=== PATIENT | male | born 1955 | race Caucasian/White ===

== ENCOUNTER 2018-01-25 02:20 | Emergency (ER) | payer BC ==
[~2018-01-25] VITALS: Ht 175.3 cm; Wt 72.6 kg
[~2018-01-25 02:20] MED LIST: BACTRIM DS TAB1 EACH PO; HUMALOG100 UNIT/1 SUB-Q; HUMULIN R100 UNIT/1 INJ; HYDROCODON-ACE1 EA10 PO; IBUPROFEN600 MG PO; LANTUS100 UNITS/ SUB-Q; LEVAQUIN500 MG PO; LEVEMIR100 UNIT/1 SUB-Q; MAPAP325 MG PO; METFORMIN HCL1000 MG PO; NICOTINE PATCH1 EAC1 TD; PRAVACHOL40 MG PO
[2018-01-25] MEDS ORDERED: LANTUS100 UNITS/ SUB-Q (02:28)
[2018-01-25] MEDS ORDERED: ALEVE220 MG PO (02:40)
[2018-01-25] MEDS ORDERED: NORCO 5-325 TA1 EACH PO (04:25)
--- NOTE | 2018-01-25 17:27 | EKG ---
[facility] [address] [facility] [address] [place] [address] Signed Normal sinus rhythm T wave abnormality, consider lateral ischemia Abnormal ECG When compared with ECG of 14-DEC-2016 11:45, Non-specific change in ST segment in Inferior leads Confirmed by YANG RAMSAY MD ([id number]) on 01/25/2018 5:26:46 PM Electronically Signed By: YANG RAMSAY MD 01/25/18 1727 PATIENT NAME: KRISTINE RENDON Electrocardiogram DATE OF : 59 PHYSICIAN: YANG RAMSAY MD REPORT #: [id number] REPORT IS CONFIDENTIAL AND NOT TO BE RELEASED WITHOUT AUTHORIZATION
== END 2018-01-25 04:47 | disposition home or self-care (01) ==
LOC: ED 02:20
DX: J93.9 Pneumothorax, unspecified (principal); E11.9 Type 2 diabetes mellitus without complications; I10 Essential (primary) hypertension; F17.200 Nicotine dependence, unspecified, uncomplicated; Z79.4 Long term (current) use of insulin; Z79.899 Other long term (current) drug therapy
CPT/HCPCS: 71045; 71260; 74177; 80053; 83690; 83880; 84484; 85025; 85379; 85610; 85730; 93005; 93010; 96374; 96375; 99284; J1170; J2405; Q9967

== ENCOUNTER 2018-03-03 14:29 | Emergency (ER) | payer BC ==
[~2018-03-03] VITALS: Ht 172.7 cm; Wt 76.2 kg
[~2018-03-03 14:29] MED LIST changes: +ALEVE220 MG PO; +ERIVEDGE150 MG PO; +NORCO 5-325 TA1 EACH PO
[2018-03-03] MEDS ORDERED: NOVOLOG100 UNIT/2 (14:45)
[2018-03-03] MEDS ORDERED: CYCLOBENZAPRINE5 MG PO (16:46)
== END 2018-03-03 17:11 | disposition home or self-care (01) ==
LOC: ED 14:29
DX: R25.2 Cramp and spasm (principal); C78.00 Secondary malignant neoplasm of unspecified lung; E11.9 Type 2 diabetes mellitus without complications; J44.9 Chronic obstructive pulmonary disease, unspecified; I10 Essential (primary) hypertension; E78.00 Pure hypercholesterolemia, unspecified; Z87.891 Personal history of nicotine dependence; Z79.4 Long term (current) use of insulin; Z79.899 Other long term (current) drug therapy
CPT/HCPCS: 80053; 85025; 99283

== ENCOUNTER 2018-07-16 08:08 | Emergency (ER) | payer BC ==
[~2018-07-16] VITALS: Ht 172.7 cm; Wt 62.1 kg
--- OUTSIDE RECORDS SUMMARY | ~2018-07-16 | XMS | Encounter Summary ---
Demographics + + + | Address | [address] | | | [place] [address] | + + + | Home Phone | | + + + | Preferred Language | Unknown | + + + | Marital Status | | + + + | Jain Affiliation | Unknown | + + + | Race | Unknown | + + + | Ethnic Group | Unknown | + + + Author + + + | Author | [facility] | | | and Jean Paulana | + + + | Organization | [facility] | | | and Jean Paulana | + + + | Address | Unknown | + + + | Phone | Unavailable | + + + Support + + + + + | Name | Relationship | Address | Phone | + + + + + | Alicia Ya | ECON | [address] | | | | | [place], [place] | | | | | [address] | | + + + + + Care Team Providers + +------+ + | Care Quality Assurance Assessor Name | Role | Phone | + +------+ + | Gilda Cedeno | PCP | | | Jayshree ARELLANO | | | + +------+ + Reason for Visit +--------+ + | Reason | Comments | +--------+ + | Other | | +--------+ + Encounter Details +--------+ + + + + | Date | Type | Department | Care Team | Description | +--------+ + + + + | 05/09/ | Telephone | [facility] | Grupo, | Other | | 2018 | | [facility] | Roman Martinez MD [address] | | | | | [facility] [address] [place] | | | | | [address] [place] | [place] [address] | | | | | [place] [address] | [phone] | | | | | [phone] | | | +--------+ + + + + Social History + +-------+ +--------+------+ | Tobacco Use | Types | Packs/Day | Years | Date | | | | | Used | | + +-------+ +--------+------+ | Never Assessed | | | | | + +-------+ +--------+------+ + + + | Sex Assigned at | Date Recorded | | | | + + + | Not on file | | + + + as of this encounter Plan of Treatment Not on fileas of this encounter Visit Diagnoses Not on filein this encounter"
--- OUTSIDE RECORDS SUMMARY | ~2018-07-16 | XMS | Encounter Summary ---
Demographics + + + | Address | [address] | | | [place] [address] | + + + | Home Phone | | + + + | Preferred Language | Unknown | + + + | Marital Status | | + + + | Scientology Affiliation | Unknown | + + + | Race | Unknown | + + + | Ethnic Group | Unknown | + + + Author + + + | Author | [facility] | + + + | Organization | [facility] | + + + | Address | Unknown | + + + | Phone | Unavailable | + + + Support + + +---------+ + | Name | Relationship | Address | Phone | + + +---------+ + | Alicia Ya | ECON | Unknown | | + + +---------+ + Care Team Providers + +------+ + | Care Car Icer Name | Role | Phone | + +------+ + | Gilda Cedeno PA-C | PCP | | + +------+ + Reason for Visit + + + | Reason | Comments | + + + | Follow-up | PFT, cxr | + + + Consult and Treat (Routine) +--------+--------+ + + + + | Status | Reason | Specialty | Diagnoses / | Referred By | Referred To | | | | | Procedures | Contact | Contact | +--------+--------+ + + + + | Closed | | Pulmonology | Diagnoses | Wilian, | Heladio | | | | | Nery | Gilda | Melissa | | | | | malignant | E, PA-C | MD Myrtle | | | | | neoplasm of | [address] | | | | | unspecified | [address] | | | | | lung (HCC) | [place], | [place], [place] | | | | | | [place] | [address] Phone: | | | | | | [address] | [phone] | | | | | | Phone: | Fax: | | | | | | [phone] | [phone] | | | | | | Fax: | | | | | | | [phone] | | +--------+--------+ + + + + Encounter Details +--------+---------+ + + + | Date | Type | Department | Care Team | Description | +--------+---------+ + + + | 04/17/ | Office | [facility] | Erick Cortez | Centrilobular | | 2018 | Visit | Pulmonology [address] | Jaxon Heredia MD [address] | emphysema (HCC) | | | | [address] | (Primary Dx); | | | | [place] | [place] [address] | Metastatic basal | | | | [address] | [phone] | cell carcinoma; | | | | [phone] | | Personal history of | | | | | | tobacco use, | | | | | | presenting hazards | | | | | | to health; | | | | | | Postprocedural | | | | | | pneumothorax | +--------+---------+ + + + Social History + +-------+ +--------+ + | Tobacco Use | Types | Packs/Day | Years | Date | | | | | Used | | + +-------+ +--------+ + | Former Smoker | | 1 | 48 | Quit: 01/10/2018 | + +-------+ +--------+ + + +---+---+---+ | Smokeless Tobacco: | | | | | Never Used | | | | + +---+---+---+ + + +---------+ + | Alcohol Use | Drinks/We | oz/Week | Comments | | | ek | | | + + +---------+ + | No | | | | + + +---------+ + + + + | Sex Assigned at | Date Recorded | | | | + + + | Not on file | | + + + as of this encounter Last Filed Vital Signs + + + + | Vital Sign | Reading | Time Taken | + + + + | Blood Pressure | 112/69 | 04/17/2018 9:31 AM PDT | + + + + | Pulse | 55 | 04/17/2018 9:31 AM PDT | + + + + | Temperature | 36.5 C (97.7 F) | 04/17/2018 9:31 AM PDT | + + + + | Respiratory Rate | - | - | + + + + | Oxygen Saturation | 98% | 04/17/2018 9:31 AM PDT | + + + + | Inhaled Oxygen | - | - | | Concentration | | | + + + + | Weight | 65.8 kg (145 lb) | 04/17/2018 9:31 AM PDT | + + + + | Height | 175.3 cm (5' 9") | 04/17/2018 9:31 AM PDT | + + + + | Body Mass Index | 21.41 | 04/17/2018 9:31 AM PDT | + + + + in this encounter Progress Notes Erick Cortez MD - 04/17/2018 9:30 AM PDTFormatting of this note may be diffe rent from the original. Patient: Hesham Ya 62 y.o. 1955 Referred from: Gilda Cedeno PA-C [address] [place] [address] Referral reason: COPD HPI: Initial history: 01/18/18 Hesham Ya is a 62 year old gentleman referred to us for multiple lung nodules on CT. Ruslan marc is a current smoker at 1 ppd since age 14. He has a history of basal cell skin Ca which was resected from his left posterior shoulder area which he says was complicated by an infec tion. Last year in December 2016, he had a CT showing a right upper lobe nodule for which a f ollow up CT was recommended. He then had a repeat CT chest on 01/07/18 now showing slightly enlarged RUL lesion with development of numerous bilateral lung nodules with mild bilateral axillary adenopathy and a spiculated mass in the left axilla. Currently he denies dyspnea but does have an intermittent mild cough with whitish sputum. He also notices some interm ittent wheezing as well. 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 Interval history: Hesham is here for follow up for COPD. He had his PFT's which showed mild obstructive lung d isease. He tried using ventolin once but just had cramps of his whole body requiring him to go to the ED. However, he denies any respiratory issues at this time. He denies dyspnea o r wheezing. His main issue is that he has been having nausea and vomiting for 3 days and fabian s been unable to keep anything down the past 3 days. He was also recently treated for an or al thrush. Review of Systems Constitutional: Positive for weight loss. Negative for chills, diaphoresis, fever and malai se/fatigue. HENT: Negative. Negative for congestion and sore throat. Eyes: Negative. Respiratory: Negative for cough, hemoptysis, sputum production, shortness of breath and whe ezing. Cardiovascular: Negative for chest pain, palpitations, orthopnea and leg swelling. Gastrointestinal: Positive for nausea and vomiting. Negative for abdominal pain, constipati on and diarrhea. Genitourinary: Negative for dysuria. Musculoskeletal: Negative for joint pain. Skin: Negative. Negative for rash. Neurological: Negative for dizziness and focal weakness. Endo/Heme/Allergies: Negative for environmental allergies. All other systems reviewed and are negative. Past Medical History Diagnosis Date Arthritis Centrilobular emphysema (HCC) 04/17/2018 Hyperlipidemia Malignant neoplasm (HCC) Skin Metastatic basal cell carcinoma 01/30/2018 Type 2 diabetes mellitus (HCC) Past Surgical History Procedure Laterality Date LUNG BIOPSY 01/24/2018 CT NEEDLE BIOPSY LUNG 01/24/2018 Blayne Henriquez MD [facility] CT ROTATOR CUFF REPAIR Left SKIN CANCER EXCISION Twice Family History Problem Relation Age of Onset Cancer Father Prostate and colon Diabetes type II Father Social History Social History Marital status: Spouse name: N/A Number of children: N/A Years of education: N/A Occupational History Not on file. Social History Main Topics Smoking status: Former Smoker Packs/day: 1.00 Years: 48.00 Quit date: 01/10/2018 Smokeless tobacco: Never Used Alcohol use No Drug use: No Sexual activity: Not on file Other Topics Concern Not on file Social History Narrative No narrative on file Outpatient Encounter Prescriptions as of 04/17/2018 Medication Sig Dispense Refill ERIVEDGE 150 MG capsule Take 150 mg by mouth daily. glucose blood test strip OneTouch Ultra Blue Test Strip insulin aspart (NOVOLOG) 100 UNIT/ML injection Inject into the skin 3 (three) times da natalee before meals. insulin glargine (LANTUS) 100 UNIT/ML injection Inject 30 Units into the skin nightly. Insulin Syringe-Needle U-100 (INSULIN SYRINGE 1CC/31GX5/16") 31G X 5/16" 1 ML MISC LEVEMIR 100 UNIT/ML injection metFORMIN (GLUCOPHAGE) 1000 MG tablet Take 1,000 mg by mouth 2 (two) times daily. pravastatin (PRAVACHOL) 40 MG tablet Take 40 mg by mouth nightly. No facility-administered encounter medications on file as of 04/17/2018. Vitals: 04/17/18 0931 BP: 112/69 BP Location: Left upper arm Patient Position: Sitting Pulse: 55 Temp: 97.7 F (36.5 C) TempSrc: Oral SpO2: 98% Weight: 65.8 kg (145 lb) Height: 1.753 m (5' 9") Physical Exam Constitutional: He appears well-developed. No distress. HENT: Head: Normocephalic. Mouth/Throat: Oropharynx is clear and moist. No oropharyngeal exudate. Eyes: Conjunctivae are normal. No scleral icterus. Neck: No tracheal deviation present. No visible thrush on exam Cardiovascular: Normal rate, regular rhythm and normal heart sounds. No murmur heard. Pulmonary/Chest: Effort normal and breath sounds normal. No accessory muscle usage or strid or. No tachypnea and no bradypnea. No respiratory distress. He has no decreased breath sound s. He has no wheezes. He has no rhonchi. He has no rales. Abdominal: Soft. He exhibits no distension and no mass. There is no tenderness. There is no guarding. Musculoskeletal: He exhibits no edema. Lymphadenopathy: He has no cervical adenopathy. Neurological: He is alert. Skin: Skin is warm. He is not diaphoretic. No cyanosis. Nails show no clubbing. Vitals reviewed. PET 01/21/18 1. An irregular spiculated soft tissue mass in left axilla with hypermetabolic activity c oncerning for malignancy, probably metastatic. 2. Multiple enlarged hypermetabolic left axillary and left supraclavicular lymph nodes an d multiple hypermetabolic bilateral pulmonary lymph nodes concerning for metastasis. 3. An irregular shaped nodular opacity in right upper lobe with area of cavitation and hy permetabolic activity, could represent metastasis or pneumonia. 4. A small focal lesion in right parotid with hypermetabolic activity concerning for neop lasm. Differential considerations include malignant or benign primary parotid neoplasm or me tastasis. Recommend ENT consultation. 5. Mildly hypermetabolic bilateral internal jugular chain level 2 lymph nodes, nonspecifi c, probably reactive. Metastatic lymphadenopathy cannot been entirely excluded. 6. Subtle skin thickening overlying right scapula measuring approximately 5 to 6 mm with mild hypermetabolic activity, max SUV 2.3. A small inflammatory or neoplastic skin lesion ca nnot be excluded. This may be amenable to direct clinical inspection. 7. Additional incidental findings as detailed above. Lung biopsy: 01/24/18 SPECIMEN(S): A Rt. LOWER LUNG NODULE SPECIMEN SOURCE: A. Rt. LOWER LUNG NODULE CLINICAL HISTORY: 01/24/2018 at 1300 H. Mult. New pulm nodules. Hx of basal cell Ca. FINAL PATHOLOGIC DIAGNOSIS: Lung, right lower lobe nodule, core biopsies: - Metastatic basal cell carcinoma COMMENT: The tumor fragments are infiltrated by carcinoma comprised of cells morphologically compati ble with basal cell carcinoma. The diagnosis is confirmed by the following immunohistochem ical staining pattern: - Positive for YASIR-3, CK 5/6, p40 and p63 - Negative for JASMYNE, low molecular weight cytokeratin (CK8/18), Napsin-A, [place]-8, T TF-1, CK7, CDx-2, synaptophysin and chromogranin PFT [place] 02/14/18 FEV1/FVC ratio 0.61 FEV-1 2.62L/77% FVC 4.3L/99% (+) 19 % improvement in FEV1 and 14% improvement in FVC post bronchodilators TLC 7.33L/111% RV/TLC 0.46 DLCO 69% DL/VA 78% CXR: 01/30/18 1. Interval resolution of previously visualized small right pneumothorax. 2. Multiple bilateral pulmonary nodules, better evaluated on CT dated 01/07/2018. 3. COPD with pulmonary emphysema. 4. Small right pleural effusion, new as compared to radiographs dated 04/26/2017. Assessment and Plan: A> 62M smoker with multiple lung nodules, multiple enlarged lymph nodes, skin lesions secon tahir to metastatic basal cell carcinoma. P> 1. COPD - the patient has emphysema in a former smoker with mild obstructive lung disease on most r ecent PFT - he tried ventolin but results in cramps. So he has not used this. However, he feels apntera t he does not have much respiratory symptoms at this time and does not need to use any inhal ers which is reasonable in someone with mild obstructive lung disease. If he does develop d yspnea or wheezing later on, we can start him on long acting inhalers such as spiriva or ano ro ellipta. 2. Nausea/vomiting - the patient says he has had intractable nausea and vomiting the past few days and most no tably the past 3 days has not been able to keep anything down. His abdominal exam is unrema rkable and nontender. - he will try to contact his PCP and oncologist but I suggested that the better option may be to go to the ED so he may be evaluated and may need IV hydration. He says he will consid er going to the ED in [place]. 3. Metastatic basal cell ca - follows with Dr. Lombardo. - PET scan today 4. Pneumothorax post biopsy - resolved on last CXR on 01/30. Return in about 6 months (around 10/18/2018). in this encounter Plan of Treatment +--------+---------+ + + + | Date | Type | Specialty | Care Team | Description | +--------+---------+ + + + | 10/18/ | Office | Pulmonology | Erick Cortez | | | 2019 | Visit | | Jaxon Heredia MD [address] | | | | | | [address] | | | | | | [place] [address] | | | | | | [phone] | | | | | | | | +--------+---------+ + + + as of this encounter Visit Diagnoses + + | Diagnosis | + + | Centrilobular emphysema (HCC) - Primary | + + | Other emphysema | + + | Metastatic basal cell carcinoma | + + | Personal history of tobacco use, presenting hazards to health | + + | Postprocedural pneumothorax | + + | Iatrogenic pneumothorax | + +
--- OUTSIDE RECORDS SUMMARY | ~2018-07-16 | XMS | Encounter Summary ---
Demographics + + + | Address | [address] | | | [place] [address] | + + + | Home Phone | | + + + | Preferred Language | Unknown | + + + | Marital Status | | + + + | Orthodox Affiliation | Unknown | + + + | Race | Unknown | + + + | Ethnic Group | Unknown | + + + Author + + + | Author | [facility] | | | and Jean Paulana | + + + | Organization | [facility] | | | [...] [address] | | | | | [place], [place] | | | | | [address] | | + + + + + Care Team Providers + +------+ + | Care Doughnut Fryer Name | Role | Phone | + [...] [place] | | | | | [address] [place] | [place] [address] | | | | | [place] [address] | [phone] | | | | | [phone] | | | +--------+ + + + [...]
--- OUTSIDE RECORDS SUMMARY | ~2018-07-16 | XMS | Clinical Summary ---
Demographics + + + | Address | [address] | | | [place] [address] | + + + | Home Phone | | + + + | Preferred Language | Unknown | + + + | Marital Status | | + + + | Mormonism Affiliation | Unknown | + + + | Race | Unknown | + + + | Ethnic Group | Unknown | + + + Author + + + | Author | [facility] | | | and Jean Paulana | + + + | Organization | [facility] | | | and Jean Paulana | + + + | Address | Unknown | + + + | Phone | Unavailable | + + + Support + + + + + | Name | Relationship | Address | Phone | + + + + + | Alicia Rendon | ECON | [address] | | | | | [place], [place] | | | | | [address] | | + + + + + Care Team Providers + +------+ + | Care Wharf Attendant Name | Role | Phone | + +------+ + | Gilda Cedeno | PP | | | Jayshree ARELLANO | | | + +------+ + Allergies Not on File Current Medications Not on file Active Problems Not on file Encounters +--------+ + + + + | Date | Type | Specialty | Care Team | Description | +--------+ + + + + | 06/05/ | Ancillary | | Provider, | | | 2017 | Orders | | MD Ronit | | +--------+ + + + + | 06/03/ | Ancillary | | Provider, | | | 2017 | Orders | | MD Ronit | | +--------+ + + + + | 06/03/ | Ancillary | | Provider, | | | 2017 | Orders | | MD Ronit | | +--------+ + + + + | 05/09/ | Telephone | | Grupo, | Other | | 2018 | | | Roman Martinez MD | | +--------+ + + + + | 04/17/ | Imaging | | Provider, | | | 2017 | Exam | | MD Ronit | | +--------+ + + + + from Last 3 Months Social History + +-------+ +--------+------+ | Tobacco [...] on file | | + + + Plan of Treatment + + + + + | Health Maintenance | Due Date | Last Done | Comments | + + + + + | Hepatitis C | | | | | Screening | 8 | | | + + + + + | Vaccine: | | | | | Dtap/Tdap/Td (1 - | 7 | | | | Tdap) | | | | + + + + + | Colorectal Cancer | | | | | Screening | 8 | | | | (Colonoscopy) | | | | + + + + + | Vaccine: Zoster (1 | | | | | of 2) | 8 | | | + + + + + | Vaccine: Influenza | | | | | (#1) | 8 | | | + + + + + Procedures + +--------+ + + + | Procedure Name | Priori | Date/Time | Associated Diagnosis | Comments | | | ty | | | | + +--------+ + + + | PET CT SKULL BASE TO | Routin | 04/17/2018 | | Results for this | | MID THIGH | e | 1240 PDT | | procedure are in the | | | | | | results section. | + +--------+ + + + from Last [address] Skull Base To Mid Thigh (04/17/2018 1240) + + + | Narrative | Performed At | + + + | External films for comparison only | [facility] | | | | | No results will be in the chart. | | + + + + +---------+ + + | Performing | Address | City/State/Zipcode | Phone Number | | Organization | | | | + +---------+ + + | [facility] | | | | + +---------+ + + from Last 3 Months Insurance +---------+--------+ +------+ +---------+ | Payer | Benefi | Subscriber | Type | Phone | Address | | | t Plan | ID | | | | | | / | | | | | | | Group | | | | | +---------+--------+ +------+ +---------+ | [employer] | [employer] | [id number] | PPO | [phone] | | | | [place] [employer] | | | [id number] | | | | [place] | | | | | | | PPO | | | | | +---------+--------+ +------+ +---------+ + +--------+ +--------+ + + | Guarantor Name | Accoun | Relation to | Date | Phone | Billing Address | | | t Type | Patient | of | | | | | | | | | | + +--------+ +--------+ + + | KRISTINE RENDON | Person | Self [birth year] Home: | [address] | | | al/Fam | | 1955 | [phone] | [place] [address] | | | natalee | | | [phone] | | + +--------+ +--------+ + +"
--- OUTSIDE RECORDS SUMMARY | ~2018-07-16 | XMS | Clinical Summary ---
Demographics + + + | Address | [address] | | | [place] [address] | + + + | Home Phone | | + + + | Preferred Language | Unknown | + + + | Marital Status | | + + + | Roman Catholic Affiliation | Unknown | + + + | Race | Unknown | + + + | Ethnic Group | Unknown | + + + Author + + + | Author | [facility] [employer] | + + + | Organization | [facility] [employer] [facility] | + + + | Address | Unknown | + + + | Phone | Unavailable | + + + Support + + +---------+ + | Name | Relationship | Address | Phone | + + +---------+ + | Alicia Rendon | ECON | Unknown | | + + +---------+ + Care Team Providers + +------+ + | Care Cinder Block Mason Name | Role | Phone | + +------+ + | Gilda Cedeno PA-C | PP | | + +------+ + Allergies No Known Allergies Current Medications + + +-------+---------+------+------+-------+ | Prescription | Sig. | Disp. | Refills | Star | End | Statu | | | | | | t | Date | s | | | | | | Date | | | + + +-------+---------+------+------+-------+ | metFORMIN | Take 1,000 mg by | | | | | Activ | | (GLUCOPHAGE) 1000 MG | mouth 2 (two) times | | | | | e | | tablet | daily. | | | | | | + + +-------+---------+------+------+-------+ | pravastatin | Take 40 mg by mouth | | | | | Activ | | (PRAVACHOL) 40 MG | nightly. | | | | | e | | tablet | | | | | | | + + +-------+---------+------+------+-------+ | insulin glargine | Inject 30 Units into | | | | | Activ | | (LANTUS) 100 UNIT/ML | the skin nightly. | | | | | e | | injection | | | | | | | + + +-------+---------+------+------+-------+ | insulin aspart | Inject into the | | | | | Activ | | (NOVOLOG) 100 | skin 3 (three) times | | | | | e | | UNIT/ML injection | daily before meals. | | | | | | + + +-------+---------+------+------+-------+ | glucose blood test | OneTouch Ultra Blue | | | | | Activ | | strip | Test Strip | | | | | e | + + +-------+---------+------+------+-------+ | LEVEMIR 100 | | | | 02/0 | | Activ | | UNIT/ML injection | | | | 9/20 | | e | | | | | | 18 | | | + + +-------+---------+------+------+-------+ | Insulin | | | | 03/1 | | Activ | | Syringe-Needle U-100 | | | | 2/20 | | e | | (INSULIN SYRINGE | | | | 18 | | | | [id number]/[id number]/16") 31G X | | | | | | | | 5/16" 1 ML MISC | | | | | | | + + +-------+---------+------+------+-------+ | ERIVEDGE 150 MG | Take 150 mg by mouth | | | 08/0 | | Activ | | capsule | daily. | | | 6/20 | | e | | | | | | 18 | | | + + +-------+---------+------+------+-------+ Active Problems + + + | Problem | Noted Date | + + + | Centrilobular emphysema (HCC) | 04/17/2018 | + + + | Postprocedural pneumothorax | 01/30/2018 | + + + | Metastatic basal cell carcinoma | 01/30/2018 | + + + | Personal history of tobacco use, presenting hazards to health | 01/30/2018 | + + + Encounters +--------+ + + + + | Date | Type | Specialty | Care Team | Description | +--------+ + + + + | 04/17/ | Hospital | | [facility], | Basal cell carcinoma | | 2017 | Encounter | | MD Roman | of skin of other | | | | | | parts of face; | | | | | | Malignant neoplasm | | | | | | metastatic to lung, | | | | | | unspecified | | | | | | laterality (HCC) | +--------+ + + + + | 04/17/ | Office | | E[facility] Cortez | Centrilobular | | 2017 | Visit | | Jaxon Heredia MD | emphysema (HCC) | | | | | | (Primary Dx); | | | | | | Metastatic basal | | | | | | cell carcinoma; | | | | | | Personal history of | | | | | | tobacco use, | | | | | | presenting hazards | | | | | | to health; | | | | | | Postprocedural | | | | | | pneumothorax | +--------+ + + + + | 04/17/ | Documentati | | [facility], | | | 2017 | on Only | | MD Roman | | +--------+ + + + + | 04/17/ | Documentati | | [facility], | | | 2017 | on Only | | MD Roman | | +--------+ + + + + from Last 3 Months Family History + + +------+ + | Medical History | Relation | Name | Comments | + + +------+ + | Cancer | Father | | Prostate and colon | + + +------+ + | Diabetes type II | Father | | | + + +------+ + + +------+ + + | Relation | Name | Status | Comments | + +------+ + + | Father | | | | + +------+ + + | Mother | | | | + +------+ + + Social History + +-------+ +--------+ [...] on file | | + + + Last Filed Vital Signs + + + [...] + + + | Respiratory Rate | 16 | 01/24/2018 1:10 PM PDT | + + + + | Oxygen [...] AM PDT | + + + + Plan of Treatment +--------+---------+ + + + | Date | Type | Specialty | Care Team | Description | +--------+---------+ + + + | 10/18/ | Office | | E[facility] Cortez | | | 2019 | Visit | | Jaxon Heredia MD [address] | | | | | | [address] | | | | | | [place] [address] | | | | | | [phone] | | | | | | | | +--------+---------+ + + + Procedures + +--------+ + + + | Procedure Name | Priori | Date/Time | Associated Diagnosis | Comments | | | ty | | | | + +--------+ + + + | PET CT TUMOR | Routin | 04/17/2018 | Basal cell | Results for this | | LOCALIZATION | e | 1:52 PM | carcinoma of skin of | procedure are in the | | SUBSEQUENT TORSO | | PDT | other parts of face | results section. | | | | | Malignant neoplasm | | | | | | metastatic to lung, | | | | | | unspecified | | | | | | laterality (HCC) | | + +--------+ + + + | POCT GLUCOSE | Routin | 04/17/2018 | | Results for this | | | e | 11:34 AM | | procedure are in the | | | | PDT | | results section. | + +--------+ + + + from Last 3 Months Results PET Subsequent Torso FDG (04/17/2018 1:52 PM) + + + | Impressions | Performed At | + + + | 1. Decrease in size and uptake of the pulmonary metastatic | [facility] | | disease, with near resolution of pulmonary uptake. 2. Decrease in | RADIOLOGY | | size with moderate decrease in activity of the left axillary | | | metastasis. 3. Mild decrease in size and uptake of the | | | infiltrative right upper lobe malignant mass. 4. Faint probably | | | reactive uptake in the bilateral neck lymph nodes. 5. Near | | | resolution of the lymph nodes and associated uptake in the left | | | supraclavicular and deep left axillary region. 6. 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 7. Other benign findings as described. | | | | | + + + + + + | Narrative | Performed At | + + + | KRISTINE RENDON 1955 04/17/2018 1:[address] TUMOR | [facility] | | LOCALIZATION SUBSEQUENT TORSO HISTORY: Basal cell carcinoma the | RADIOLOGY | | face, with metastases to the lung COMPARISON: 01/21/18 PET/CT. CT | | | chest 01/07/18. CT-guided lung biopsy of the left lower lobe | | | 01/24/18. Chest x-ray most recent 01/30/18. TECHNIQUE: Serum | | | blood sugar 94 mg/dL. Fused PET/CT scans were obtained from the | | | skull base through the thighs at 75 minutes post injection of 13.7 | | | millicuries F18 fluorodeoxyglucose. CT images are for localization | | | only, and not for diagnostic purposes. FINDINGS: The original | | | infiltrative lung lesion in the anterolateral right upper lobe has | | | minimally decreased in size, with mild decrease in uptake. There has | | | been decrease in size of the numerous pulmonary metastases, with | | | decrease in uptake. No new pulmonary lesions. Left axillary metastatic | | | disease has decreased in size and uptake. Target lesions: | | | 1. Right lower lobe pulmonary nodule sequence 4 image 133 measuring | | | 9 x 7 mm, SUV 1.8, compared with 12 x 12 mm, SUV 7.7 previously. | | | 2. Right upper lobe pulmonary nodule series 4 image 103 measures 7 | | | x 5 mm, SUV 1.1, compared with 11 x 7 mm, SUV 4.4 previously. | | | 3. Infiltrative nodule in the anterior right upper lobe sequence 4 | | | image 112 measuring 17 x 17 mm, SUV 4.0, compared with 18 x 12 mm | | | previously, SUV 4.0 previously. 4. Left lower lobe pulmonary | | | nodule sequence 4 image 134 measuring 5 x 4 mm, SUV 1.1. | | | 5. Spiculated left axillary mass sequence 4 image 98 measuring 2.0 | | | x 0.9 cm, SUV 6.5, compared with 2.0 x 2.3 cm, SUV 12.9 previously. | | | 6. The index left axillary lymph node sequence 4 image 84 measures | | | 0.8 x 0.6 cm, SUV 1.5. 7. The index left supraclavicular lymph | | | node is no longer seen, without uptake. There is a 5 x 6 mm nodule | | | within the posterior margin of the right parotid salivary gland | | | sequence 4 image 38 mm, SUV 11.2, stable in size, previously SUV 18.9. | | | Faint uptake in stable sized bilateral level 2 lymph nodes | | | measuring 10 x 5 mm sequence 4 image 52 on the right, and 12 x 4 mm on | | | the left image 54, SUV 2.8 and 2.3 respectively, previous SUV 3.9, | | | 4.4 respectively. Subtle uptake of the skin along the posterior | | | right axilla has uptake, likely reactive. Calcified granulomata in the | | | lungs. Partially calcified subcarinal lymph node, without uptake. | | | Intense distal small and diffuse large bowel uptake, more prominent | | | today, but without corresponding CT changes, probably reactive. 2 | | | stones measuring 1-2 mm in the upper and midpole of the left kidney | | | again noted. Fusiform dilatation of the distal abdominal aorta | | | measures up to 2.6 cm AP dimension with moderate atherosclerotic | | | changes, but no aneurysm. | | + + + + + | Procedure Note | + + | Pedro, Rad Results In - 04/17/2018 2:34 PM PDT KRISTINE Nguyen H[facility]SEINE3/5[facility]12745 1:52 | | PMPET CT TUMOR LOCALIZATION SUBSEQUENT TORSOHISTORY: Basal cell carcinoma the face, | | with metastases to the lungCOMPARISON: 01/21/18 PET/CT. CT chest 01/07/18. CT-guided | | lung biopsy of the left lower lobe 01/24/18. Chest x-ray most recent | | 01/30/18.TECHNIQUE:Serum blood sugar 94 mg/dL. Fused PET/CT scans were obtained from | | the skull base through the thighs at 75 minutes post injection of 13.7 millicuries F18 | | fluorodeoxyglucose. CT images are for localization only, and not for diagnostic | | purposes.FINDINGS:The original infiltrative lung lesion in the anterolateral right upper | | lobe has minimally decreased in size, with mild decrease in uptake. There has been | | decrease in size of the numerous pulmonary metastases, with decrease in uptake. No new | | pulmonary lesions. Left axillary metastatic disease has decreased in size and | | uptake.Target lesions:1. Right lower lobe pulmonary nodule sequence 4 image 133 | | measuring 9 x 7 mm, SUV 1.8, compared with 12 x 12 mm, SUV 7.7 previously.2. Right | | upper lobe pulmonary nodule series 4 image 103 measures 7 x 5 mm, SUV 1.1, compared with | | 11 x 7 mm, SUV 4.4 previously.3. Infiltrative nodule in the anterior right upper lobe | | sequence 4 image 112 measuring 17 x 17 mm, SUV 4.0, compared with 18 x 12 mm previously, | | SUV 4.0 previously.4. Left lower lobe pulmonary nodule sequence 4 image 134 measuring | | 5 x 4 mm, SUV 1.1.5. Spiculated left axillary mass sequence 4 image 98 measuring 2.0 x | | 0.9 cm, SUV 6.5, compared with 2.0 x 2.3 cm, SUV 12.9 previously.6. The index left | | axillary lymph node sequence 4 image 84 measures 0.8 x 0.6 cm, SUV 1.5.7. The index | | left supraclavicular lymph node is no longer seen, without uptake.There is a 5 x 6 mm | | nodule within the posterior margin of the right parotid salivary gland sequence 4 image | | 38 mm, SUV 11.2, stable in size, previously SUV 18.9.Faint uptake in stable sized | | bilateral level 2 lymph nodes measuring 10 x 5 mm sequence 4 image 52 on the right, and | | 12 x 4 mm on the left image 54, SUV 2.8 and 2.3 respectively, previous SUV 3.9, 4.4 | | respectively.Subtle uptake of the skin along the posterior right axilla has uptake, | | likely reactive. Calcified granulomata in the lungs. Partially calcified subcarinal | | lymph node, without uptake.Intense distal small and diffuse large bowel uptake, more | | prominent today, but without corresponding CT changes, probably reactive.2 stones | | measuring 1-2 mm in the upper and midpole of the left kidney again noted. Fusiform | | dilatation of the distal abdominal aorta measures up to 2.6 cm AP dimension with | | moderate atherosclerotic changes, but no aneurysm.IMPRESSION:1. Decrease in size and | | uptake of the pulmonary metastatic disease, with near resolution of pulmonary uptake.2. | | Decrease in size with moderate decrease in activity of the left axillary metastasis.3. | | Mild decrease in size and uptake of the infiltrative right upper lobe malignant mass.4. | | Faint probably reactive uptake in the bilateral neck lymph nodes.5. Near resolution | | of the lymph nodes and associated uptake in the left supraclavicular and deep left | | axillary region.6. 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 Other benign findings as | | described. | |5. Near resolution of the lymph nodes and associated uptake in the left supraclavicular an d deep left axillary region. | |6. 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 | |7. Other benign findings as described. | | | | | + + + + + + + | Performing | Address | City/State/Zipcode | Phone Number | | Organization | | | | + + + + + | [facility] | [address] | [place] [address] | | + + + + + POCT glucose (04/17/2018 11:34 AM) + + + + + | Component | Value | Ref Range | Performed At | + + + + + | GLUCOSE,POC SCREEN | 94Comment: Testing | 65 - 99 mg/dL | [facility] | | | performed at [facility];[id number] | [address];[place] | | | | | [address] | | | + + + + + + + + + + | Performing | Address | City/State/Zipcode | Phone Number | | Organization | | | | + + + + + | [facility] | [address] | [place] [address] | | + + + + + from Last 3 Months Insurance +---------+--------+ +------+-------+ + | Payer | Benefi | Subscriber | Type | Phone | Address | | | t Plan | ID | | | | | | / | | | | | | | Group | | | | | +---------+--------+ +------+-------+ + | PREMERA | PREMER | [id number] | | | [address] [address] | | | A BLUE | | | | [place] | | | [place] | | | | [address] | | | FED | | | | | | | PPO | | | | | +---------+--------+ +------+-------+ + + +--------+ +--------+ + + | Guarantor Name | Accoun | Relation to | Date | Phone | Billing Address | | | t Type | Patient | of | | | | | | | | | | + +--------+ +--------+ + + | KRISTINE RENDON | Person | Self [birth year] Home: | [address] | | | al/Fam | | 1955 | [phone] | [place] | | | [place]alee | | | [phone] | [phone] | + +--------+ +--------+ + +
--- OUTSIDE RECORDS SUMMARY | ~2018-07-16 | XMS | Encounter Summary ---
Demographics + + + | Address | [address] | | | [place] [address] | + + + | Home Phone | | + + + | Preferred Language | Unknown | + + + | Marital Status | | + + + | Amish Affiliation | Unknown | + + + | Race | Unknown | + + + | Ethnic Group | Unknown | + + + Author + + + | Author | [facility] | | | and Jean Paulana | + + + | Organization | [facility] | | | and Jean Paulana | + + + | Address | Unknown | + + + | Phone | Unavailable | + + + Support + + + + + | Name | Relationship | Address | Phone | + + + + + | Alicia Ya | ECON | [address] | | | | | [place], [place] | | | | | [address] | | + + + + + Care Team Providers + +------+ + | Care Director Employee Safety And Health Name | Role | Phone | + +------+ + | Gilda Cedeno | PCP | | | Jayshree ARELLANO | | | + +------+ + Encounter Details +--------+ + + + + | Date | Type | Department | Care Team | Description | +--------+ + + + + | 06/03/ | Ancillary | [facility]AT[facility] RODRIGUE[facility] | Provider, | | | 2018 | Orders | [facility] | MD [address] | | | | | IMAGING | [address] | | | | | [phone] | [place] [address] | | +--------+ + + + + [...] Treatment Not on fileas of this encounter Results PET CT Skull Base To Mid [...] | | | + +---------+ + + in this encounter Visit Diagnoses Not on filein this encounter"
--- OUTSIDE RECORDS SUMMARY | ~2018-07-16 | XMS | Encounter Summary ---
Demographics + + + | Address | [address] | | | [place] [address] | + + + | Home Phone | | + + + | Preferred Language | Unknown | + + + | Marital Status | | + + + | Spiritism Affiliation | Unknown | + + + | Race | Unknown | + + + | Ethnic Group | Unknown | + + + Author + + + | Author | [facility] | | | and Jean Paulana | + + + | Organization | [facility] | | | and Jean Paulana | + + + | Address | Unknown | + + + | Phone | Unavailable | + + + Support + + + + + | Name | Relationship | Address | Phone | + + + + + | Alicia Ya | ECON | [address] | | | | | [place], [place] | | | | | [address] | | + + + + + Care Team Providers + +------+ + | Care Weld Inspector Name | Role | Phone | + [...] [address] | | | | | [phone] | [place] [address] | | +--------+ + + + + [...] PET CT Skull Base To Mid Thigh (01/21/2018 1423) + + + | Narrative | Performed [...]
--- OUTSIDE RECORDS SUMMARY | ~2018-07-16 | XMS | Encounter Summary ---
Demographics + + + | Address | [address] | | | [place] [address] | + + + | Home Phone | | + + + | Preferred Language | Unknown | + + + | Marital Status | | + + + | Sabianist Affiliation | Unknown | + + + | Race | Unknown | + + + | Ethnic Group | Unknown | + + + Author + + + | Author | [facility] | | | and Jean Paulana | + + + | Organization | [facility] | | | [...] [address] | | | | | [place], [place] | | | | | [address] | | + + + + + Care Team Providers + +------+ + | Care Ballistics Teacher Name | Role | Phone | + +------+ + | Gilda Cedeno | PCP | | | Jayshree ARELLANO | | | + +------+ + Encounter Details +--------+ + + + + | Date | Type | Department | Care Team | Description | +--------+ + + + + | 06/05/ | Ancillary | [facility] | Provider, | | | 2018 | Orders | [facility] | MD [address] | | | | | IMAGING | [address] | | | | | [phone] | [place] [address] | | +--------+ + + + + [...] Not on fileas of this encounter Results CT Chest Abdomen Pelvis w Contrast (01/25/2018 1600) + + + | Narrative | Performed [...] | | | + +---------+ + + XR Chest 1 Vw (01/25/20181399) + + + | Narrative | Performed [...] | | | + +---------+ + + XR Chest 1 Vw (12/15/20171399) + + + | Narrative | Performed [...] | | | + +---------+ + + CT Chest Abdomen Pelvis w Contrast (12/15/2016 1300) + + + | Narrative | Performed [...] | | | + +---------+ + + XR Chest 2 Vws (12/14/2016 1500) + + + | Narrative | Performed [...]
--- OUTSIDE RECORDS SUMMARY | ~2018-07-16 | XMS | Encounter Summary ---
Demographics + + + | Address | [address] | | | [place] [address] | + + + | Home Phone | | + + + | Preferred Language | Unknown | + + + | Marital Status | | + + + | Mormon Affiliation | Unknown | + + + | Race | Unknown | + + + | Ethnic Group | Unknown | + + + Author + + + | Author | [facility] [employer] | + + + | Organization | [facility] [employer] [facility] | + + + | Address | Unknown | + + + | Phone | Unavailable | + + + Support + + +---------+ + | Name | Relationship | Address | Phone | + + +---------+ + | Alicia Ya | ECON | Unknown | | + + +---------+ + Care Team Providers + +------+ + | Care Employment Specialist Name | Role | Phone | + +------+ + | Gilda Cedeno PA-C | PCP | | + +------+ + Encounter Details +--------+ + + + + | Date | Type | Department | Care Team | Description | +--------+ + + + + | 04/17/ | Documentati | [facility] | Grupo, | | | 2018 | on Only [facility] | MD [address] | | | | | [id number] | [address] | | | | | [place] | [place] [address] | | | | | [place] [address] | [phone] | | | | | [phone] | | | +--------+ + + + [...] as of this encounter Plan of Treatment +--------+---------+ + + + | Date | Type | Specialty | Care Team | Description | +--------+---------+ + + + | 10/18/ | Office | Pulmonology | Erick Cortez | | | 2019 | Visit | | Jaxon Heredia MD [address] | | | | | | [address] | | | | | | [place] [address] | | | | | | [phone] | | | | | | | | +--------+---------+ + + + as of this encounter Visit Diagnoses Not on filein this encounter"
--- OUTSIDE RECORDS SUMMARY | ~2018-07-16 | XMS | Encounter Summary ---
Demographics + + + | Address | [address] | | | [place] [address] | + + + | Home Phone | | + + + | Preferred Language | Unknown | + + + | Marital Status | | + + + | Hinduism Affiliation | Unknown | + + + | Race | Unknown | + + + | Ethnic Group | Unknown | + + + Author + + + | Author | [facility] | + + + | Organization | [facility] [employer] [facility] | + + + | Address | Unknown | + + + | Phone | Unavailable | + + + Support + + +---------+ + | Name | Relationship | Address | Phone | + + +---------+ + | Alicia Ya | ECON | Unknown | | + + +---------+ + Care Team Providers + +------+ + | Care Safety Glass Installer Name | Role | Phone | + +------+ + | Gilda Cedeno PA-C | PCP | | + +------+ + Encounter Details +--------+ + + + + | Date | Type | Department | Care Team | Description | +--------+ + + + + | 04/17/ | Documentati | [facility] | Grupo, | | | 2018 | on Only [facility] | MD [address] | | | | | [id number] | [address] | | | | | [address] [place] | [place] [address] | | | | | [place] [address] | [phone] | | | | | [phone] | | | +--------+ + + + [...] [address] | | | | | | [place] [address] | | | | | | [phone] | | | | | | | | +--------+---------+ + + + as of this encounter Visit Diagnoses Not on filein this encounter"
--- OUTSIDE RECORDS SUMMARY | ~2018-07-16 | XMS | Clinical Summary ---
Demographics + + + | Address | [address] | | | [place] [address] | + + + | Home Phone | | + + + | Preferred Language | Unknown | + + + | Marital Status | | + + + | Amish Affiliation | Unknown | + + + | Race | Unknown | + + + | Ethnic Group | Unknown | + + + Author + + + | Author | [facility] | | | and Jean Paulana | + + + | Organization | [facility] | | | [...] [address] | | | | | [place], [place] | | | | | [address] | | + + + + + Care Team Providers + +------+ + | Care Applications Systems Engineer Name | Role | Phone | + [...] +------+ +---------+ | [facility] | [facility] | [id number] | PPO | [phone] | | | E BCBS | [...] Self | [birth year] | Home: | [address] | | | al/Fam | | 1955 | [phone] | [place] [address] | | | [place] | | | [phone] | | + +--------+ +--------+ + +"
--- OUTSIDE RECORDS SUMMARY | ~2018-07-16 | XMS | Encounter Summary ---
Demographics + + + | Address | [address] | | | [place] [address] | + + + | Home Phone | | + + + | Preferred Language | Unknown | + + + | Marital Status | | + + + | Shinto Affiliation | Unknown | + + + | Race | Unknown | + + + | Ethnic Group | Unknown | + + + Author + + + | Author | [facility] | | | and Jean Paulana | + + + | Organization | [facility] | | [...] [address] | | | | | [place], [place] | | | | | [address] | | + + + + + Care Team Providers + +------+ + | Care Awning Hanger Helper Name | Role | Phone | + +------+ + | Gilda Cedeno | PCP | | | Jayshree ARELLANO | | | + +------+ + Encounter Details +--------+ + + + + | Date | Type | Department | Care Team | Description | +--------+ + + + + | 06/05/ | Ancillary | [facility] | Provider, | | | 2018 | Orders | [facility] | MD [address] | | | | | IMAGING | [address] | | | | | [phone] | [place] [address] | | +--------+ + + + + [...]
--- OUTSIDE RECORDS SUMMARY | ~2018-07-16 | XMS | Encounter Summary ---
Demographics + + + | Address | [address] | | | [place] [address] | + + + | Home Phone | | + + + | Preferred Language | Unknown | + + + | Marital Status | | + + + | Caodaism Affiliation | Unknown | + + + | Race | Unknown | + + + | Ethnic Group | Unknown | + + + Author + + + | Author | [facility] | + + + | Organization | [facility] | + + + | Address | Unknown | + + + | Phone | Unavailable | + + + Support + + +---------+ + | Name | Relationship | Address | Phone | + + +---------+ + | Alicia Rendon | ECON | Unknown | | + + +---------+ + Care Team Providers + +------+ + | Care Care Transitions Manager Name | Role | Phone | + +------+ + | Gilda Cedeno PA-C | PCP | | + +------+ + Reason for Referral PET (Routine) +--------+--------+ + + + + | Status | Reason | Specialty | Diagnoses / | Referred By | Referred To | | | | | Procedures | Contact | Contact | +--------+--------+ + + + + | Closed | | Radiology | Diagnoses | | [facility] | | | | | Basal cell | Grupo, | Nuclear | | | | | carcinoma of | MD Roman | Medicine [address] | | | | | skin of | [address] | | | | | other parts | [address] | [address] | | | | | of face | [place], | [place], [place] | | | | | Malignant | [place] [address] | [address] Phone: | | | | | neoplasm | Phone: | [phone] | | | | | metastatic | [phone] | Fax: | | | | | to lung, | Fax: | [phone] | | | | | unspecified | [phone] | | | | | | laterality | | | | | | | (HCC) | | | | | | | Procedures | | | | | | | PET | | | | | | | Subsequent | | | | | | | Torso FDG | | | +--------+--------+ + + + + PET (Routine) +--------+--------+ + + + + | Status | Reason | Specialty | Diagnoses / | Referred By | Referred To | | | | | Procedures | Contact | Contact | +--------+--------+ + + + + | Closed | | Radiology | Diagnoses | | [facility] | | | | | Basal cell | Grupo, | Nuclear | | | | | carcinoma of | MD Roman | Medicine [address] | | | | | skin of | [address] | [address] | | | | | other parts | [address] | [address] | | | | | of face | [place], | [place], [place] | | | | | Malignant | [place] [address] | [address] Phone: | | | | | neoplasm | Phone: | [phone] | | | | | metastatic | [phone] | Fax: | | | | | to lung, | Fax: | [phone] | | | | | unspecified | [phone] | | | | | | laterality | | | | | | | (HCC) | | | | | | | Procedures | | | | | | | PET | | | | | | | Subsequent | | | | | | | [place] FDG | | | +--------+--------+ + + + + Reason for Visit PET (Routine) +--------+--------+ + + + + | Status | Reason | Specialty | Diagnoses / | Referred By | Referred To | | | | | Procedures | Contact | Contact | +--------+--------+ + + + + | Closed | | Radiology | Diagnoses | | [facility] | | | | | Basal cell | Grupo, | Nuclear | | | | | carcinoma of | MD Roman | Medicine [address] | | | | | skin of | [address] | [address] | | | | | other parts | [address] | [address] | | | | | of face | [place], | [place], [place] | | | | | Malignant | [place] [address] | [address] Phone: | | | | | neoplasm | Phone: | [phone] | | | | | metastatic | [phone] | Fax: | | | | | to lung, | Fax: | [phone] | | | | | unspecified | [phone] | | | | | | laterality | | | | | | | (HCC) | | | | | | | Procedures | | | | | | | PET | | | | | | | Subsequent | | | | | | | [place] FDG | | | +--------+--------+ + + + + Encounter Details +--------+ + + + + | Date | Type | Department | Care Team | Description | +--------+ + + + + | 04/17/ | Hospital | [facility] | Grupo, | Basal cell carcinoma | | 2018 | Encounter | [facility] | MD Roman [address] | of skin of other | | | | Nuclear Medicine | [address] | parts of face; | | | | [address] | [place] [address] | Malignant neoplasm | | | | [address] [place], | [phone] | metastatic to lung, | | | | [place] [address] | | unspecified | | | | [phone] | | laterality (HCC) | +--------+ + + + + Social [...] + + + as of this encounter Medications at Time of Discharge + + +-------+---------+ + + | Medication | Sig. | Disp. | Refills | Start | End Date | | | | | | Date | | + + +-------+---------+ + + | ERIVEDGE 150 MG | Take 150 mg by mouth | | | 04/15/20 | | | capsule | daily. | | | 18 | | + + +-------+---------+ + + | glucose blood test | OneTouch Ultra Blue | | | | | | strip | Test Strip | | | | | + + +-------+---------+ + + | insulin aspart | Inject into the | | | | | | (NOVOLOG) 100 | skin 3 (three) times | | | | | | UNIT/ML injection | daily before meals. | | | | | + + +-------+---------+ + + | insulin glargine | Inject 30 Units into | | | | | | (LANTUS) 100 UNIT/ML | the skin nightly. | | | | | | injection | | | | | | + + +-------+---------+ + + | Insulin | | | | 11/20/19 | | | Syringe-Needle U-100 | | | | 18 | | | (INSULIN SYRINGE | | | | | | | 1CC/31GX5/16") 31G X | | | | | | | 5/16" 1 ML MISC | | | | | | + + +-------+---------+ + + | LEVEMIR 100 | | | | 10/19/19 | | | UNIT/ML injection | | | | 18 | | + + +-------+---------+ + + | metFORMIN | Take 1,000 mg by | | | | | | (GLUCOPHAGE) 1000 MG | mouth 2 (two) times | | | | | | tablet | daily. | | | | | + + +-------+---------+ + + | pravastatin | Take 40 mg by mouth | | | | | | (PRAVACHOL) 40 MG | nightly. | | | | | | tablet | | | | | | + + +-------+---------+ + + as of this encounter Plan of Treatment +--------+---------+ + + + | Date | Type | Specialty | Care Team | Description | +--------+---------+ + + + | 10/18/ Office | Pulmonology | Erick Cortez | | | 2019 | Visit | | Jaxon Heredia MD [address] | | | | | | [address] | | | | | | [place] [address] | | | | | | [phone] | | | | | | | | +--------+---------+ + + + as of this encounter Procedures + +--------+ + + + | [...] section. | + +--------+ + + + in this encounter Results PET Subsequent [place] FDG (04/17/2018 1:52 [...] In - 04/17/2018 2:34 PM PDT KRISTINE CATALANE328779 1:52 | | PMPET CT TUMOR LOCALIZATION [...] | + + + + + | CAT [facility] | [address] | [place] [address] | | + + + + + POCT glucose (04/17/2018 11:34 AM) + + + + + | Component | Value | Ref Range | Performed At | + + + + + | GLUCOSE,POC SCREEN | 94Comment: Testing | 65 - 99 mg/dL | [facility] | | | performed at [facility];[address] | | | | | [address];[place] | | | | | [address] | | | + + + + + + + + + + | Performing | Address | City/State/Zipcode | Phone Number | | Organization | | | | + + + + + | [facility] | [address] | [place] [address] | | + + + + + in this encounter Visit Diagnoses + + | Diagnosis | + + | Basal cell carcinoma of skin of other parts of face | + + | Malignant neoplasm metastatic to lung, unspecified laterality (HCC) | + + Admitting Diagnoses + + | Diagnosis | + + | Malignant neoplasm metastatic to lung, unspecified laterality (HCC) | + + | Basal cell carcinoma of skin of other parts of face | + +
--- OUTSIDE RECORDS SUMMARY | ~2018-07-16 | XMS | Encounter Summary ---
Demographics + + + | Address | [address] | | | [place] [address] | + + + | Home Phone | | + + + | Preferred Language | Unknown | + + + | Marital Status | | + + + | Orthodox Affiliation | Unknown | + + + | Race | Unknown | + + + | Ethnic Group | Unknown | + + + Author + + + | Author | [facility] | | | and Jean Paulana | + + + | Organization | [facility] | | | and Jean Paulana | + + + | Address | Unknown | + + + | Phone | Unavailable | + + + Support + + + + + | Name | Relationship | Address | Phone | + + + + + | Alicia Ya | ECON | [address] | | | | | [place], [place] | | | | | [address] | | + + + + + Care Team Providers + +------+ + | Care Web Marketing Strategist Name | Role | Phone | + [...] [address] | | | | | [phone] | [place] [address] | | +--------+ + + + + [...]
--- OUTSIDE RECORDS SUMMARY | ~2018-07-16 | XMS | Clinical Summary ---
Demographics + + + | Address | [address] | | | [place] [address] | + + + | Home Phone | | + + + | Preferred Language | Unknown | + + + | Marital Status | | + + + | Quaker Affiliation | Unknown | + + + | Race | Unknown | + + + | Ethnic Group | Unknown | + + + Author + + + | Author | [facility] | + + + | Organization | [facility] [employer] [facility] | + + + | Address | Unknown | + + + | Phone | Unavailable | + + + Support + + +---------+ + | Name | Relationship | Address | Phone | + + +---------+ + | Alicia Rendon | ECON | Unknown | | + + +---------+ + Care Team Providers + +------+ + | Care Sales Engineering Manager Name | Role | Phone | [...] | | 2017 | Visit | | Jxaon Heredia MD | emphysema (HCC) | | [...] | | | | | [place] [address] | | | | | | [phone] | | | | | | | [...] - 04/17/2018 2:34 PM PDT KRISTINE Nguyen HOSSEINE3/5/80872 1:52 | | PMPET CT TUMOR LOCALIZATION [...] | + + + + + | [facility] | [address] | [place] [address] | | + + + + + POCT glucose (04/17/2018 11:34 AM) + + + + + | Component | Value | Ref Range | Performed At | + + + + + | GLUCOSE,POC SCREEN | 94Comment: Testing | 65 - 99 mg/dL | [facility] | | | performed at [facility];[address] | | | | | [address];[place] | | | | | [address] | | | + + + + + + + + + + | Performing | Address | City/State/Zipcode | Phone Number | | Organization | | | | + + + + + | [facility] | [address] | [place] [address] | | + + + + + from Last 3 Months Insurance +---------+--------+ +------+-------+ + | Payer | Benefi | Subscriber | Type | Phone | Address | | | t Plan | ID | | | | | | / | | | | | | | Group | | | | | +---------+--------+ +------+-------+ + | PREMERA | PREMER | [id number] | | | [address] [address] | | | A BLUE | | | | [place] | | | [place] | | | | [address] | | | FED | | | [...] | [birth year] | Home: | [address] | | | al/Fam | | 1955 | [phone] | [place] | | | [place] | | | [phone] | [address] | + +--------+ +--------+ + +
--- OUTSIDE RECORDS SUMMARY | ~2018-07-16 | XMS | Encounter Summary ---
Demographics + + + | Address | [address] | | | [place] [address] | + + + | Home Phone | | + + + | Preferred Language | Unknown | + + + | Marital Status | | + + + | Anabaptism Affiliation | Unknown | + + + | Race | Unknown | + + + | Ethnic Group | Unknown | + + + Author + + + | Author | [facility] [employer] | + + + | Organization | [facility] [facility] | + + + | Address | Unknown | + + + | Phone | Unavailable | + + + Support + + +---------+ + | Name | Relationship | Address | Phone | + + +---------+ + | Alicia Ya | ECON | Unknown | | + + +---------+ + Care Team Providers + +------+ + | Care Secondary Spanish Teacher Name | Role | Phone | [...] | | | | lung (HCC) | [place], | [place], [place] | | | | | | [place] | [address] Phone: | | | | | | [address] | [phone] | | | | | | Phone: | Fax: | | | | | | [phone] | [phone] | | | | | | Fax: | | | | | | | [phone] | | +--------+--------+ + + + + Encounter Details +--------+---------+ + + + | Date | Type | Department | Care Team | Description | +--------+---------+ + + + | 04/17/ | Office | [facility] | Erick Cortez | Centrilobular | | 2018 | Visit | Pulmonology [address] | Jaxon Heredia MD [address] | emphysema (HCC) | | | | [address] | [address] | (Primary Dx); | | | | [place] | [place] [address] | Metastatic basal | | | | [address] | [phone] | cell carcinoma; | | | | [phone] | | Personal history of | | [...] y.o. 1955 Referred from: Gilda Cedeno PA-C [address] [place] [address] Referral reason: COPD HPI: Initial history: 01/18/18 [...] NEEDLE BIOPSY LUNG 01/24/2018 Blayne Henriquez MD [facility] CT ROTATOR CUFF REPAIR Left SKIN [...] JASMYNE, low molecular weight cytokeratin (CK8/18), Napsin-A, [place]-8, T TF-1, CK7, CDx-2, synaptophysin and chromogranin PFT [place] 02/14/18 FEV1/FVC ratio 0.61 FEV-1 2.62L/77% FVC [...] has not used this. However, he feels pantera t he does not have much respiratory [...] consid er going to the ED in [place]. 3. Metastatic basal cell ca - follows [...] [address] | | | | | | [place] [address] | | | | | | [phone] | | | | | | | [...]
--- OUTSIDE RECORDS SUMMARY | ~2018-07-16 | XMS | Encounter Summary ---
Demographics + + + | Address | [address] | | | [place] [address] | + + + | Home Phone | | + + + | Preferred Language | Unknown | + + + | Marital Status | | + + + | Moravian Affiliation | Unknown | + + + | Race | Unknown | + + + | Ethnic Group | Unknown | + + + Author + + + | Author | [facility] | | | and Jean Paulana | + + + | Organization | [facility] | | | and Jean Paulana | + + + | Address | Unknown | + + + | Phone | Unavailable | + + + Support + + + + + | Name | Relationship | Address | Phone | + + + + + | Alicia Ya | ECON | [address] | | | | | [place], [place] | | | | | [address] | | + + + + + Care Team Providers + +------+ + | Care Business Administration Program Chair Name | Role | Phone | + [...] [address] | | | | | [phone] | [place] [address] | | +--------+ + + + + [...] CT Skull Base To Mid Thigh (01/21/2018 1429) + + + | Narrative | Performed [...]
--- OUTSIDE RECORDS SUMMARY | ~2018-07-16 | XMS | Encounter Summary ---
Demographics + + + | Address | [address] | | | [place] [address] | + + + | Home Phone | | + + + | Preferred Language | Unknown | + + + | Marital Status | | + + + | Scientology Affiliation | Unknown | + + + | Race | Unknown | + + + | Ethnic Group | Unknown | + + + Author + + + | Author | [facility] [facility] | + + + | Organization | [facility] | + + + | Address | Unknown | + + + | Phone | Unavailable | + + + Support + + +---------+ + | Name | Relationship | Address | Phone | + + +---------+ + | Alicia Ya | ECON | Unknown | | + + +---------+ + Care Team Providers + +------+ + | Care Skiing Teacher Name | Role | Phone | + +------+ + | Gilda Cedeno PA-C | PCP | | + +------+ + Encounter Details +--------+ + + + + | Date | Type | Department | Care Team | Description | +--------+ + + + + | 04/17/ | Documentati | [facility] | Grupo, | | | 2018 | on Only [facility] | MD Roman [address] | | | | | [id number] | [address] | | | | | [address] [place] | [place] [address] | | | | | [place] [address] | [phone] | | | | | [phone] | | | +--------+ + + + [...] [address] | | | | | | [place] [address] | | | | | | [phone] | | | | | | | | +--------+---------+ + + + as of this encounter Visit Diagnoses Not on filein this encounter"
--- OUTSIDE RECORDS SUMMARY | ~2018-07-16 | XMS | Encounter Summary ---
Demographics + + + | Address | [address] | | | [place] [address] | + + + | Home Phone | | + + + | Preferred Language | Unknown | + + + | Marital Status | | + + + | Catholic Affiliation | Unknown | + + + | Race | Unknown | + + + | Ethnic Group | Unknown | + + + Author + + + | Author | [facility] [employer] | + + + | Organization | [facility] | + + + | Address | Unknown | + + + | Phone | Unavailable | + + + Support + + +---------+ + | Name | Relationship | Address | Phone | + + +---------+ + | Alicia Rendon | ECON | Unknown | | + + +---------+ + Care Team Providers + +------+ + | Care Risk Specialist Name | Role | Phone | [...] | | Radiology | Diagnoses | | [facility] | | | | | Basal cell | Grupo, | Nuclear | | | | | carcinoma of | MD Roman | Medicine [address] | | | | | skin of | [address] | [address] | | | | | other parts | [address] | [address] | | | | | of face | [place], | [place], [place] | | | | | Malignant | [place] [address] | [address] Phone: | | | | | neoplasm | Phone: | [phone] | | | | | metastatic | [phone] | Fax: | | | | | to lung, | Fax: | [phone] | | | | | unspecified | [phone] | | | | | | laterality [...] | | Radiology | Diagnoses | | [facility] | | | | | Basal cell | Grupo, | Nuclear | | | | | carcinoma of | MD Roman | Medicine [address] | | | | | skin of | [address] | [address] | | | | | other parts | [address] | [address] | | | | | of face | [place], | [place], [place] | | | | | Malignant | [place] [address] | [address] Phone: | | | | | neoplasm | Phone: | [phone] | | | | | metastatic | [phone] | Fax: | | | | | to lung, | Fax: | [phone] | | | | | unspecified | [phone] | | | | | | laterality [...] | | Radiology | Diagnoses | | [facility] | | | | | Basal cell | Grupo, | Nuclear | | | | | carcinoma of | MD Roman | Medicine [address] | | | | | skin of | [address] | [address] | | | | | other parts | [address] | [address] | | | | | of face | [place], | [place], [place] | | | | | Malignant | [place] [address] | [address] Phone: | | | | | neoplasm | Phone: | [phone] | | | | | metastatic | [phone] | Fax: | | | | | to lung, | Fax: | [phone] | | | | | unspecified | [phone] | | | | | | laterality [...] + + | 04/17/ | Hospital | [facility] | Grupo, | Basal cell carcinoma | | 2018 | Encounter | [facility] | MD Roman [address] | of skin of other | | | | Nuclear Medicine | [place] [address] | parts of face; | | | | [address] | [place] [address] | Malignant neoplasm | | | | [address] [place], | [phone] | metastatic to lung, | | | | [place] [address] | | unspecified | | | | [phone] | | laterality (HCC) | +--------+ + [...] [address] | | | | | | [place] [address] | | | | | | [phone] | | | | | | | [...] In - 04/17/2018 2:34 PM PDT KRISTINE [id number] 1:52 | | PMPET CT TUMOR LOCALIZATION [...] | [address] | [place] [address] | | + + + + + POCT glucose (04/17/2018 11:34 AM) + + + + + | Component | Value | Ref Range | Performed At | + + + + + | GLUCOSE,POC SCREEN | 94Comment: Testing | 65 - 99 mg/dL | [facility] | | | performed at [facility];[address] | | | | | [address];[place] | | | | | [address] | | | + + + + + + + + + + | Performing | Address | City/State/Zipcode | Phone Number | | Organization | | | | + + + + + | [facility] | [address] | [place] [address] | | + + + + + [...]
--- OUTSIDE RECORDS SUMMARY | ~2018-07-16 | XMS | Encounter Summary ---
Demographics + + + | Address | [address] | | | [place] [address] | + + + | Home Phone | | + + + | Preferred Language | Unknown | + + + | Marital Status | | + + + | Lutheran Affiliation | Unknown | + + + | Race | Unknown | + + + | Ethnic Group | Unknown | + + + Author + + + | Author | [facility] | | | and Jean Paulana | + + + | Organization | [facility] | | | and Jean Paulana | + + + | Address | Unknown | + + + | Phone | Unavailable | + + + Support + + + + + | Name | Relationship | Address | Phone | + + + + + | Alicia Ya | ECON | [address] | | | | | [place], [place] | | | | | [address] | | + + + + + Care Team Providers + +------+ + | Care Electronic Security Specialist Name | Role | Phone | + +------+ + | Gilda Cedeno | PCP | | | Jayshree [place] | | | + +------+ + Encounter Details +--------+ + + + + | Date | Type | Department | Care Team | Description | +--------+ + + + + | 04/17/ | Imaging | [facility] | Provider, | | | 2018 | Exam | [facility] | MD [address] | | | | | IMAGING | [address] | | | | | [phone] | [place] [address] | | +--------+ + + + + [...] Treatment Not on fileas of this encounter Procedures + +--------+ + [...] + + in this encounter Results PET CT Skull Base [...]
--- OUTSIDE RECORDS SUMMARY | ~2018-07-16 | XMS | Encounter Summary ---
Demographics + + + | Address | [address] | | | [place] [address] | + + + | Home Phone | | + + + | Preferred Language | Unknown | + + + | Marital Status | | + + + | Scientologist Affiliation | Unknown | + + + | Race | Unknown | + + + | Ethnic Group | Unknown | + + + Author + + + | Author | [facility] | + + + | Organization | [facility] [employer] [facility] | + + + | Address | Unknown | + + + | Phone | Unavailable | + + + Support + + +---------+ + | Name | Relationship | Address | Phone | + + +---------+ + | Alicia Ya | ECON | Unknown | | + + +---------+ + Care Team Providers + +------+ + | Care Hospital Aide Name | Role | Phone | + +------+ + | Gilda Cedeno PA-C | PCP | | + +------+ + Encounter Details +--------+ + + + + | Date | Type | Department | Care Team | Description | +--------+ + + + + | 04/17/ | Documentati | [facility] | Grupo, | | | 2018 | on Only [facility] | MD Roman [address] | | | | | [id number] | [address] | | | | | [address] | [place] [address] | | | | | [place] [address] | [phone] | | | | | [phone] | | | +--------+ + + + [...] [address] | | | | | | [place] [address] | | | | | | [phone] | | | | | | | | +--------+---------+ + + + as of this encounter Visit Diagnoses Not on filein this encounter"
--- OUTSIDE RECORDS SUMMARY | ~2018-07-16 | XMS | Encounter Summary ---
Demographics + + + | Address | [address] | | | [place] [address] | + + + | Home Phone | | + + + | Preferred Language | Unknown | + + + | Marital Status | | + + + | Shinto Affiliation | Unknown | + + + | Race | Unknown | + + + | Ethnic Group | Unknown | + + + Author + + + | Author | [facility] | | | and Jean Paulana | + + + | Organization | [facility] | | | [...] [address] | | | | | [place], [place] | | | | | [address] | | + + + + + Care Team Providers + +------+ + | Care Dinner Cook Name | Role | Phone | + [...] [address] | | | | | [phone] | [place] [address] | | +--------+ + + + + [...]
[~2018-07-16 08:08] MED LIST changes: +CYCLOBENZAPRINE5 MG PO; +NOVOLOG100 UNIT/2
[2018-07-16] MEDS ORDERED: ZOFRAN ODT4 MG PO (10:39)
--- NOTE | 2018-07-16 14:58 | EKG ---
[facility] [address] [facility] [place] [address] Signed Normal sinus rhythm Minimal voltage criteria for LVH, may be normal variant T wave abnormality, consider inferolateral ischemia Prolonged QT Abnormal ECG When compared with ECG of 25-JAN-2018 02:42, Inverted T waves have replaced nonspecific T wave abnormality in Inferior leads Confirmed by REUBEN LAO DO ([id number]) on 07/16/2018 2:58:42 PM Electronically Signed By: REUBEN LAO DO 07/16/18 1458 PATIENT NAME: KRISTINE RENDON Electrocardiogram DATE OF : 59 PHYSICIAN: REUBEN LAO DO REPORT #: [id number] REPORT IS CONFIDENTIAL AND NOT TO BE RELEASED WITHOUT AUTHORIZATION
== END 2018-07-16 11:50 | disposition home or self-care (01) ==
LOC: ED 08:08
DX: E86.0 Dehydration (principal); N18.9 Chronic kidney disease, unspecified; I12.9 Hypertensive chronic kidney disease with stage 1 through stage 4 chronic kidney disease, or unspecified chronic kidney disease; C44.90 Unspecified malignant neoplasm of skin, unspecified; E11.9 Type 2 diabetes mellitus without complications; E78.00 Pure hypercholesterolemia, unspecified; Z87.891 Personal history of nicotine dependence; Z79.4 Long term (current) use of insulin; Z79.899 Other long term (current) drug therapy
CPT/HCPCS: 71045; 80053; 81001; 83605; 83690; 84484; 85025; 93005; 93010; 96361; 96374; 99284; J2405; J7030

== ENCOUNTER 2019-05-24 10:23 | Emergency (ER) | payer BC ==
[~2019-05-24] VITALS: Ht 175.3 cm; Wt 67.6 kg
[~2019-05-24 10:23] MED LIST changes: +GUMMI BEAR MUL1 EACH PO; +ZOFRAN ODT4 MG PO; +[UNRECOGNIZED DRUG - OTHER] PO
[2019-05-24] MEDS ORDERED: LEVEMIR100 UNIT/1 SUB-Q (10:39)
[2019-05-24] MEDS ORDERED: ONDANSETRON ODT8 MG PO (12:34)
[2019-05-24] MEDS ORDERED: PANTOPRAZOLE SO40 MG PO (12:34)
[2019-05-24] MEDS ORDERED: NORCO 5-325 TA1 EACH PO (12:34)
[2019-05-24] MEDS ORDERED: CARAFATE1 GM PO (12:40)
== END 2019-05-24 12:52 | disposition home or self-care (01) ==
LOC: ED 10:23
DX: K29.70 Gastritis, unspecified, without bleeding (principal); K21.9 Gastro-esophageal reflux disease without esophagitis; E11.9 Type 2 diabetes mellitus without complications; Z85.820 Personal history of malignant melanoma of skin; Z87.891 Personal history of nicotine dependence; Z79.4 Long term (current) use of insulin; Z79.899 Other long term (current) drug therapy
CPT/HCPCS: 80053; 81001; 83690; 85025; 96361; 96374; 99284-25; J2405; J7030